=== PATIENT | male | born 1945 | race Caucasian/White ===

== ENCOUNTER 2021-11-18 16:23 | Emergency (ER) | payer MEDICARE, BC ==
[~2021-11-18] VITALS: Ht 172.7 cm; Wt 122.7 kg
[2021-11-18 16:26] VITALS: BP 178/76
== END 2021-11-18 19:20 | disposition home or self-care (01) ==
LOC: M ED 16:23
DX: S22.41XA Multiple fractures of ribs, right side, initial encounter for closed fracture (principal); S43.401A Unspecified sprain of right shoulder joint, initial encounter; W01.198A Fall on same level from slipping, tripping and stumbling with subsequent striking against other object, initial encounter; Y92.532 Urgent care center as the place of occurrence of the external cause; Y93.9 Activity, unspecified; Y99.9 Unspecified external cause status; I25.10 Atherosclerotic heart disease of native coronary artery without angina pectoris; M85.80 Other specified disorders of bone density and structure, unspecified site; M47.814 Spondylosis without myelopathy or radiculopathy, thoracic region; Z87.891 Personal history of nicotine dependence

== ENCOUNTER 2023-01-10 20:15 | Emergency (ER) | payer MEDICARE, BC ==
[~2023-01-10] VITALS: Ht 175.3 cm; Wt 122.7 kg
[2023-01-10 20:26] VITALS: BP 184/90; TEMP 96.9; O2SAT 96
[2023-01-10] MEDS ORDERED: LIDOCAINE 2% MDV 20ML VIAL SC ONE (22:40)
[2023-01-10] MEDS ORDERED: LIDOCAINE 2% MDV 20ML VIAL As Ordered ONE (22:40)
== END 2023-01-11 00:37 | disposition home or self-care (01) ==
LOC: M ED 20:15
DX: S81.812A Laceration without foreign body, left lower leg, initial encounter (principal); W01.198A Fall on same level from slipping, tripping and stumbling with subsequent striking against other object, initial encounter; Y92.010 Kitchen of single-family (private) house as the place of occurrence of the external cause; Y93.01 Activity, walking, marching and hiking; Y99.8 Other external cause status; I50.20 Unspecified systolic (congestive) heart failure; Z79.01 Long term (current) use of anticoagulants

== ENCOUNTER 2025-02-17 13:31 | Emergency (ER) | payer MEDICARE, BC ==
[~2025-02-17] VITALS: Ht 172.7 cm; Wt 119.0 kg
[2025-02-17 14:30] VITALS: BP 134/60; O2SAT 97
[2025-02-17 14:56] VITALS: TEMP 99.1
== END 2025-02-17 14:57 | disposition home or self-care (01) ==
LOC: M ED 13:31
DX: M79.661 Pain in right lower leg (principal); Z86.718 Personal history of other venous thrombosis and embolism